=== PATIENT | male | born 1935 | race Caucasian/White ===

== ENCOUNTER 2020-11-02 10:19 | Outpatient (RCR) | payer MEDICARE, SELFPAY | END 2020-11-02 23:59 | LOC: IMMUN 10:19 | PROVIDERS: Visit Provider Family Medicine | DX: Z23 Encounter for immunization (principal) | CPT/HCPCS: 0011A; 0012A ==

== ENCOUNTER → 2021-02-20 | Outpatient (CLI) | payer MEDICARE, SELFPAY ==
--- NOTE | 2021-02-20 | BLA_PTH ---
PATIENT: SHAE ORTIZ LOC: [facility]#:[id number] AGE/SX: 85/M ROOM: RE02/20/[address]: Dr. 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 2/3 Lamina propria invasion ? not identified Lymphvascular invasion ? not identified Detrusor muscle presence ? detrusor muscle is not present in the specimen. See comment. SJ:karolina 02/21/2021 COMMENT Clinical correlation and appropriate follow up are necessary. Case has been reviewed in consultation with Dr. Oliver who concurs with the above diagnosis. IDC:AM MICROSCOPIC DESCRIPTION Slides are reviewed. GROSS DESCRIPTION Received in fixative is one container labeled with the patient's name and designated bladder biopsy. The specimen consists of one irregular fragment of light prieto soft tissue that measures 0.3 x 0.3 x 0.1 cm. The specimen is totally submitted in one cassette. / SARTHAK:karolina 02/20/21 TC:0 CPT: 23875
== END | disposition home or self-care (01) ==
LOC: LABSPEC 12:18
PROVIDERS: Referring Provider Urology; Visit Provider Urology
DX: C67.9 Malignant neoplasm of bladder, unspecified (principal)
CPT/HCPCS: 88305

== ENCOUNTER → 2021-05-29 11:30 | Outpatient (CLI) | payer MEDICARE, SELFPAY ==
[2021-05-29 12:09] LABS: Hematocrit 45.8 % (40-54); Hemoglobin 15.8 g/dL (13.0-16.5); Mean Corp Hgb Conc 34.5 g/dL (32-36); Mean Corpuscular Hgb 32.3 pg (27.0-32.0); Mean Corpuscular Volume 93.7 fL (80-94); Platelet Count 246 K/mm3 (150-450); RBC Distribution Width CV 12.5 % (11.6-14.6); Red Blood Count 4.89 M/mm3 (4.6-6.2); White Blood Count 5.5 K/mm3 (4.4-11.0)
[2021-05-29 12:30] LABS: Anion Gap 2 (5-15); BUN 11 mg/dL (7-18); BUN/Creat Ratio 9.2 RATIO (10-20); Calcium,Total 9.1 mg/dL (8.5-10.1); Chloride 106 mmol/L (98-107); Creatinine, Serum 1.19 mg/dL (0.70-1.30); EST Glomerular Filtration Rate 62 mL/min (>60); Est Glom Filt Rate - Afr Amer 75 mL/min (>60); Glucose 108 mg/dL (74-106); Potassium 4.5 mmol/L (3.5-5.1); Sodium Level 140 mmol/L (136-145)
== END ==
PROVIDERS: Visit Provider Urology
DX: Z01.812 Encounter for preprocedural laboratory examination (principal); I10 Essential (primary) hypertension
CPT/HCPCS: 36415; 80048; 85027

== ENCOUNTER → 2021-06-26 | Outpatient (CLI) | payer MEDICARE, SELFPAY ==
--- NOTE | 2021-06-23 08:00 | BLB_PTH ---
PATIENT: SHAE ORTIZ LOC: [facility]#:[id number] AGE/SX: 85/M ROOM: RE06/26/[address]: Dr. Thai Azevedo MD : 1935 BED: DIS: 06/26/2021 SPEC #: [id number] RECD: 06/26/21 15:10 STATUS: ANNAMARIE BRYSON #: [id number] BETTE: 06/23/21 08:[address]: Thai Azevedo DEPT: SURGICAL PATHOLOGY RECD BY: Christopher Florentino ENTERED: 06/27/21 08:48 SP TYPE: TURB OTHR DR: ML Tissues: Urinary bladder, NOS Procedures: Surgery Specimen Level V HEADER OPERATION: Transurethral resection of large bladder tumor PRE-OP DIAGNOSIS: Malignant neoplasm of overlapping sites of bladder TISSUE SUBMITTED: Bladder biopsies MICROSCOPIC DIAGNOSIS Urinary bladder, biopsy: Papillary urothelial carcinoma, grade 1-2. See comment. AM:karolina 06/28/2021 COMMENT There is no evidence of lamina propria invasion. Fragments of detrusor muscle are present and free of tumor. Clinical correlation is suggested. Case has been reviewed in consultation with Dr. Miller who concurs with the above diagnosis. IDC:SARTHAK MICROSCOPIC DESCRIPTION Slides are reviewed. GROSS DESCRIPTION Received in fixative is one container labeled with the patient's name and designated bladder biopsy. The specimen consists of multiple irregular fragments of light prieto soft tissue that in aggregate measure 0.5 x 0.3 x 0.1 cm. The specimen is totally submitted in one cassette. / SARTHAK:karolina 06/27/21 TC:0 CPT: [id number]
== END | disposition home or self-care (01) ==
LOC: LABSPEC 15:22
PROVIDERS: Referring Provider Urology; Visit Provider Urology
DX: C67.8 Malignant neoplasm of overlapping sites of bladder (principal)
CPT/HCPCS: 88307

== ENCOUNTER → 2021-08-10 16:57 | Outpatient (CLI) | payer MEDICARE, SELFPAY | PROVIDERS: Visit Provider Urology | DX: N39.0 Urinary tract infection, site not specified (principal) | CPT/HCPCS: 87086 ==

== ENCOUNTER 2021-11-20 16:41 | Outpatient (CLI) | payer MEDICARE, SELFPAY ==
--- NOTE | 2021-11-20 | CYSPIN_PTH ---
PATIENT: SHAE ORTIZ LOC: [facility] U#:[id number] AGE/SX: 86/M ROOM: RE11/20/[address]: Dr. Thai Azevedo MD : 1935 BED: DIS: 11/20/2021 SPEC #: [id number] RECD: 11/20/21 16:35 STATUS: ANNAMARIE MASSEY #: [id number] BETTE: 11/20/21 00:[address]: Thai Azevedo DEPT: CYTOLOGY RECD BY: Christopher Florentino Tissues: Urine Procedures: Pap Stain (control) Special Stain Group II Cytospin Fluid HEADER OPERATION: Not noted PRE-OP DIAGNOSIS: Malignant neoplasm of bladder TISSUE SUBMITTED: Urine for cytology DIAGNOSIS CYTOLOGY Urine for cytology (cytospin): Negative for malignant cells. AM:karolina 11/22/2021 CYTOLOGY STUDY Slides are reviewed. CYTOLOGY GROSS Received is 20 ml of gold cloudy fluid labeled with the patient's name and and designated per the requisition as urine. Submitted for cytology preparation. / karolina 11/21/2021 TC:5 CPT: [id number]
== END 2021-11-20 23:59 | disposition home or self-care (01) ==
LOC: LABSPEC 16:44
PROVIDERS: Referring Provider Urology; Visit Provider Urology
DX: C67.8 Malignant neoplasm of overlapping sites of bladder (principal)
CPT/HCPCS: 88108; 88313

== ENCOUNTER → 2023-11-04 | Outpatient (CLI) | payer MEDICARE, SELFPAY ==
--- NOTE | 2023-11-04 07:30 | BLB_PTH ---
PATHOLOGY RESULTS PATIENT: SHAE ORTIZ LOC: [facility] U#:[id number] AGE/SX: 88/M ROOM: RE11/04/[address]: Dr. Thai Azevedo MD : 1935 BED: DIS: 11/04/2023 SPEC #: [id number] RECD: 11/05/23 08:14 STATUS: ANNAMARIE MASSEY #: [id number] BETTE: 11/04/23 07:[address]: Thai Azevedo DEPT: SURGICAL PATHOLOGY RECD BY: Sivan Lock ENTERED: 11/05/23 08:14 SP TYPE: TURB OTHR DR: No Primary Care Phys WAS Tissues: Urinary bladder, NOS Procedures: Surgery Specimen Level V HEADER OPERATION: Bilateral transurethral resection of bladder tumor PRE-OP DIAGNOSIS: Neoplasm of bladder TISSUE SUBMITTED: Bladder tumor MICROSCOPIC DIAGNOSIS Bladder tumor, transurethral resection: Papillary urothelial carcinoma, noninvasive. See cancer summary in the comment section. SJ:rg 11/06/2023 COMMENT BLADDER CANCER (TUR) SUMMARY Procedure: Transurethral resection of bladder tumor (TURBT) Tumor site: Bilateral, otherwise not specified Histologic type: Papillary urothelial carcinoma, noninvasive Associated epithelial lesions: None identified Histologic grade: High grade (predominantly grade 2 with focal area of grade 3) Tumor configuration: Papillary Muscularis propria presence: No muscularis propria (detrusor muscle) is identified. Lymphvascular invasion: Not identified Tumor extension: Noninvasive papillary carcinoma. Additional pathologic findings: None. Clinical history: Please make reference to previous specimens ([id number]), bladder, biopsy with diagnosis of papillary urothelial carcinoma and ([id number]) urinary bladder, biopsy with diagnosis of papillary urothelial carcinoma. PATHOLOGIC STAGE: cross tie turner pNx Mx The above summary is in compliance with [employer] (CAP) Cancer Protocols Checklist and [place] [employer] on Cancer (AJCC), Staging Manual, 8th Ed. MICROSCOPIC DESCRIPTION Slides are reviewed. GROSS DESCRIPTION Received in fixative is one container labeled with the patient's name and designated bladder tumor. The specimen consists of multiple irregular fragments of prieto-brown soft tissue that in aggregate measure 1.5 x 1.0 x 0.1 cm. The specimen is totally submitted in one cassette. / SARTHAK:karolina 11/05/2023 TC:0 CPT: [id number]
--- OUTSIDE RECORDS SUMMARY | 2023-11-04 23:46 | XMS RPT_ITS | CCD ---
Author Name Unknown Address [address] [facility] [address] [place] [address] Organization [facility] Care Team Providers Care Production Support Manager Name Role Phone LORENZO MONTEMAYOR MD Primary Care Physician Unavailable Primary Care Provider UnavailMITESH Andrew Attending U LORENZO Levy MD Primary Care Unavailable MITESH GRAVES Attending LORENZO Camejo MD Primary Care Unavailable DR IRINA COLE MD Attending Unavailable LORENZO MONTEMAYOR MD Primary Care Unavailable KELSEY GARCIA, DR AREVALO Attending Unavailable LORENZO MONTEMAYOR MD Primary Care Unavailable PATRICIA GARCIA, DR HALL Attending Unavailable LORENZO MONTEMAYOR MD Primary Care Unavailable PATRICIA GARCIA, DR HALL Attending Unavailable LORENZO MONTEMAYOR MD Primary Care Unavailable LORENZO MONTEMAYOR MD Primary Care Unavailable SORAIDA CHEATHAM MD Attending Unavailable KELSEY GARCIA, DR AREVALO Attending Unavailable LORENZO MONTEMAYOR MD Primary Care Unavailable PATRICIA GARCIA, DR HALL Attending Unavailable LORENZO MONTEMAYOR MD Primary Care Unavailable LORENZO MONTEMAYOR MD Attending Unavailable LORENZO MONTEMAYOR MD Primary Care Unavailable OTONIEL GARCIA, DR BENITEZ SOTO Attending LORENZO Day MD Primary Care Unavailable Allergies Allergy Classification Reported Allergen(s) Allergy Type Date of Onset Reaction(s) Facility (7 sources) Antihistamine; Translations: [antihistamines ] Propensity to adverse reactions to drug Tachycardia [facility] Work Phone: (7 sources) hydroCHLOROthia zide; Translations: [hydrochlorothi azide] Drug Allergy hyponatremia [facility] Work Phone: (7 sources) Lisinopril; Translations: [lisinopril] Drug Allergy Lip swelling [facility] Work Phone: (7 sources) tetanus toxoid vaccine, inactivated; Translations: [tetanus toxoid] Drug Allergy Focal inflammation (morphologic abnormality) [facility] Work Phone: Medications Current Medications Medication Drug Class(es) Dates Sig (Normalized) Sig (Original) amLODIPine 5 mg oral tablet (7 sources) Dihydropyridine Calcium Channel Tasia Start: 09-17-2023 amLODIPine 5 mg oral tablet Dose : 5 mg = 1 tab(s), Oral, qDay, # 30 tab(s), 3 Refill(s), other reason (Rx), Palpitations Hyponatremia Start Date: 09/17/23 Status: Ordered Problems Active Problems Problem Classification Problem Date Documented Da te Episodic/Chronic Anxiety disorders (7 sources) Anxiety 03-18-2014 Chronic Past or Other Problems Problem Classification Problem Date Documented Da te Episodic/Chronic Cancer of bronchus; lung (8 sources) History of malignant neoplasm of lung; Translations: [Personal history of other malignant neoplasm of bronchus and lung] Onset: 04-17-2023 03-15-2022 Episodic Results Test Name Value Interpretation Reference Range Facil ity Vital Signs Date Time Vital Sign Value Performing Clinician Elizabeth anderseny 03-02-2023 20:27-0400 Diastolic Blood Pressure Non-Invasive 95 1 SORAIDA CHEATHAM MD [facility] 03-02-2023 20:27-0400 Heart rate 99 /min SORAIDA CHEATHAM MD [facility] 03-02-2023 20:27-0400 Respiratory rate 25 /min SORAIDA CHEATHAM MD [facility] 03-02-2023 20:27-0400 Systolic Blood Pressure Non-Invasive 169 1 SORAIDA CHEATHAM MD [facility] 03-02-2023 17:14-0400 Diastolic Blood Pressure Non-Invasive 93 1 SORAIDA CHEATHAM MD [facility] 03-02-2023 17:14-0400 Heart rate 90 /min SORAIDA CHEATHAM MD [facility] 03-02-2023 17:14-0400 Respiratory rate 19 /min SORAIDA CHEATHAM MD [facility] 03-02-2023 17:14-0400 Systolic Blood Pressure Non-Invasive 190 1 SORAIDA CHEATHAM MD [facility] 03-02-2023 16:01-0400 Diastolic Blood Pressure Non-Invasive 85 1 SORAIDA CHEATHAM MD [facility] 03-02-2023 16:01-0400 Heart rate 90 /min SORAIDA CHEATHAM MD [facility] 03-02-2023 16:01-0400 Respiratory rate 18 /min SORAIDA CHEATHAM MD [facility] 03-02-2023 16:01-0400 Systolic Blood Pressure Non-Invasive 168 1 SORAIDA CHEATHAM MD [facility] 03-02-2023 14:02-0400 Body temperature 97.88 [degF] SORAIDA CHEATHAM MD [facility] 03-02-2023 14:02-0400 Body weight 77.5 kg SORAIDA CHEATHAM MD [facility] Encounters Encounter Date Encounter Type Care Provider Facility Start: 10-28-2023 End: 10-29-[address] BENITEZ FREDERICK MD Facility:B Start: 10-28-2023 End: 10-28-[address] BENITEZ FREDERICK MD [facility] Start: 10-28-2023 End: 10-28-[address] BENITEZ FREDERICK MD [facility] Start: 07-23-2023 End: 07-24-2023 ambulatory LORENZO MONTEMAYOR MD Facility:B Start: 06-27-[address] ISBAEL GOMEZ MD Faci lity:A Start: 06-18-2023 End: 06-19-[address] ISABEL GOMEZ MD Facility:B Start: 06-04-2023 End: 06-05-[address] ISABEL GOMEZ MD Facility:B Start: 04-25-2023 End: 04-26-[address] IRINA COLE MD Facility:A Start: 04-19-2023 End: 04-20-[address] IRINA COLE MD Facility:B Start: 04-17-2023 End: 04-22-[address] IRINA COLE MD Facility:B Start: 04-17-2023 End: 04-21-[address] IRINA COLE MD [facility] Start: 03-28-2023 End: 03-29-2023 ambulatory MITESH ANDRAEGAYLASOBEN [employer] PROFESSOR Facility:B Start: 03-28-2023 End: 03-28-2023 Patient encounter procedure MITESH ZEPEDASOTREVORSTACY [employer] PROFESSOR [facility] Start: 03-22-2023 End: 03-23-2023 ambulatory MITESH DUANESOLDSTACY [employer]ATION PROFESSOR Facility:B Start: 03-22-2023 End: 03-22-2023 Patient encounter procedure MITESH ALETALDNER [employer] PROFESSOR [facility] Start: 03-02-2023 End: 03-02-2023 Emergency department patient visit LORENZO MONTEMAYOR MD Facility:A Start: 03-02-2023 End: 03-02-2023 Emergency department patient visit SORAIDA CHEATHAM MD [facility] Start: 03-21-2022 End: 03-21-[address] IRINA COLE MD [facility] Start: 01-31-2022 End: 05-29-2022 Outreach Lab LORENZO MONTEMAYOR MD [facility] Start: 06-18-2021 Patient encounter procedure Albert Morin MD Work Phone: [facility] Start: 06-18-2021 Progress Note Albert reese MD Work Phone: [facility] Start: 12-28-2020 Patient encounter procedure Promise Benoit MD Work Phone: [facility] Start: 12-28-2020 Progress Note Proimse Benoit MD Work Phone: [facility] Procedures Date Procedure Procedure Detail Performing Clinician Start: 06-13-2017 Cystoscopy and transurethral resection of bladder tumor LORENZO MONTEMAYOR MD Immunizations Immunization Date Immunization Notes Care Provider Fa [facility] 09-06-2021 COVID-19, mRNA, LNP- S, PF, 100 mcg or 50 mcg dose; Translations: [Moderna COVID-19 Vaccine] LORENZO MONTEMAYOR MD [facility] 11-30-2020 SARS-CoV-2 (COVID-19 ) mRNA-1273 vaccine LORENZO MONTEMAYOR MD [facility] 11-02-2020 SARS-CoV-2 (COVID-19 ) mRNA-1273 vaccine LORENZO MONTEMAYOR MD [facility] Payers Date Payer Category Payer Private Health Insurance [id number] 1935 Unknown [id number] 2.16.8 [id number] 1935 Unknown [id number] 2.16.8 [id number] 1935 Unknown [id number] 2.16.8 [id number] 1937 Unknown [id number] 2.16.8 [id number] 1937 Unknown [id number] 2.16.8 [id number] 1937 Unknown [id number] 2.16.8 [id number] 1937 Unknown [id number] 2.16.8 [id number] 1935 Unknown [id number] 2.16.8 [id number] 1935 Unknown [id number] 2.16.8 [id number] 1935 Unknown [id number] 2.16.8 [id number] 1935 Unknown [id number] 2.16.8 [id number] Social History Date Type Detail Facility Start: 02-09-2020 Tobacco smoking status Ex-smoker (fi nding) [facility] Functional Status Date Assessment Result Facility 03-02-2023 Functional Status Independent [facility] 03-02-2023 Functional Status Repositions self [facility] Mental Status Date Assessment Result Facility 03-02-2023 Mental Status Orientation Oriented x 4 [facility] Clinical Notes 12-28-2020 to 03-28-2023 Note Date & Type Note Facility [facility] 06-24-2023 Hospital Discharge instructions Patient Education 03/02/2023 20:00:15 About Arrhythmias About Arrhythmias Electrical impulses cause the normal heart to beat 60 to 100 times a minute while at rest. These impulses come from a natural pacemaker deep inside the heart muscle. Each impulse causes the heart muscle to contract. This causes the blood to flow through the heart and out to the tissues and organs of your body. An arrhythmia is a change from the normal speed or pattern of these electrical impulses. This can cause the heart to beat too fast (tachycardia); or too slow (bradycardia); or in an unsteady pattern (irregular rhythm). Symptoms of arrhythmias Different people experience arrhythmias differently. Sometimes they may not have symptoms, but justnotice a change in their pulse. Symptoms can include: Fluttering feeling in the chest Shortness of breath Chest pain or pressure Neck fullness Lightheadedness or dizziness Fainting or almost fainting Palpitations (the sense that your heart is fluttering or beating fast or hard or irregularly) Tiredness, fatigue, or weakness Cardiac arrest Causes of arrhythmias Arrhythmias are most often due to heart disease such as: Coronary artery disease Heart valve disease Enlarged heart High blood pressure Heart failure Other causes of arrhythmia include: Certain medicines (such as asthma inhalers and decongestants) Some herbal supplements Cardiac stimulant drugs (such as cocaine, amphetamine, diet pills, certain decongestant cold medicines, caffeine, and nicotine) Excessive alcohol use Anxiety and panic disorder Thyroid disease Anemia Diabetes Sleep apnea Obesity Congenital heart disease Cardiac genetic diseases Arrhythmias can often be prevented. The cause and type of arrhythmia determines the best treatment.Sometimes your doctor may want to monitor your heart rate over a 24-hour period or longer. This canhelp identify the cause of your arrhythmia and find the best treatment. This can be done with a Holter monitor, a portable EKG recording device attached by wires to your chest. Or you may get an event monitor, which you can place over the skin in front of your heart to record heart rhythms. You cancarry this with you as you go about your routine activities during the monitoring period. Implantable loop recorders may also be used to monitor the heart rhythm for up to 2 years. This miniature device is placed underneath the skin overlying the heart. Home care The following guidelines will help you care for yourself at home: Avoid cardiac stimulants (such as cocaine, amphetamine, diet pills, certain decongestant cold medicines, caffeine, and nicotine). If you smoke, stop smoking. Contact your doctor or a local stop-smoking program for help. Tell your doctor about any prescription, lclj-cak-smlqfoj, or herbal medicines you take. These may be affecting your heart rhythm. Follow-up care Follow up with your healthcare provider, or as advised. If a Holter monitor has been recommended, contact the clipper machine operator you have been referred to as soon as you can pick up driver the device. Other outpatient tests may also be arranged for you at that time. Call 911 This is the fastest and safest way to get to the emergency department. The paramedics can also start treatment on the way to the hospital, if needed. Don't wait until your symptoms are severe to call 911. Other reasons to call 911 besides chest paininclude: Chest, shoulder, arm, neck, or back pain Shortness of breath Feeling lightheaded, faint, or dizzy Unexplained fainting Rapid heart beat Slower than usual heart rate compared to your normal Very irregular heartbeat Chest pain (angina) with weakness, dizziness, heavy sweating, nausea, or vomiting Extreme drowsiness, or confusion Weakness of an arm or leg or one side of the face Difficulty with speech or vision When to seek medical advice Remember, things are not always like they are on TV. Sometimes it is not so obvious. You may only feel weak or just not right. If it is not clear or if you have any doubt, call for advice. Seek help for chest pain, or it feels different from usual, even if your symptoms are mild. Don't drive yourself. Have someone else drive. If no one can drive you, call 911. If your doctor has given you medicines to take when you have symptoms, take them, but don't delay getting help while trying to find them. [phone] [employer]. [address] [place] [address]. All rights reserved. This information is not intended as a substitute for professional medical care. Always follow yourhealthcare professional's instructions. Follow Up Care 03/02/2023 14:02:12 With:ISABEL GOMEZ Address: [address] [facility] [address] [facility] [place] [address] [phone] Business (1) When:2-4 days With:LORENZO MONTEMAYOR Address: [address] [facility] [place] [address]- Business (1) When:2-4 days [facility] 06-24-2023 Emergency department Discharge summary Discharge Instructions Thank you for allowing [facility] to assist you with your healthcare needs. The following is importantdischarge information regarding your hospital visit. Diagnosis from Today's Visit Palpitations- intermittent PVC - premature ventricular complex What to Do Next Instructions from Your Care Team Discharge Event Monitor Instructions - Ordered -- 03/02/23 20:00:00 EDT, You have been ordered mobile outpatient telemetry. If not given a device in the ED, expect to receive one in the mail. If you have not received a device within 7 days after discharge, please call [facility] at [phone]. Post Acute Orders No qualifying data available. You Need to Schedule the Following Appointments Follow Up with ISABEL GOMEZ When Within 2-4 days Where: [address] [facility] [address] [facility] [place] [address] [phone] Business (1) Follow Up with LORENZO MONTEMAYOR When Within 2-4 days Where: [address] [facility] [place] [address]- Business (1) Allergies Tetanus Toxoid Adsorbed (Localized inflammation) antihistamines (Tachycardia) hydroCHLOROthiazide (hyponatremia) lisinopril (Lip swelling) Medications Please ask your primary doctor or pharmacist before taking any other medication not listed, including over the counter drugs, herbal medications, vitamins and or supplements as they may interact withyour home medications. What How Much When Why Instructions Last Dose New metoprolol (Metoprolol Succinate ER 25 mg oral TABLET extended release) 1 tab(s) by mouth Once a day Printed Prescription Unchanged amLODIPine (amLODIPine 5 mg oral tablet) 1 tab(s) by mouth Once a day Palpitations Hyponatremia Unchanged cholecalciferol (Vitamin D3) 1,000 unit(s) by mouth Once a day Unchanged herbal/ nutritional product (Red Yeast Rice 600 mg oral capsule) 2 cap by mouth Daily at bedtime Unchanged multivitamin with minerals (Vitamin D with Minerals oral tablet) 2 tab(s) by mouth Once a day (in the morning) Unchanged multivitamin with minerals (Vitamin D with Minerals oral tablet) 1 tab(s) by mouth Daily at bedtime Unchanged ubiquinone (Co Q-10 100 mg oral capsule) 1 cap by mouth Once a day Please take this list to your next doctor s visit. Bring all medications you take, including over the counter medications, herbals and other supplements with you to your doctor s visit. Patients and families are reminded to discard old lists and to update any records with all medication providers or retail pharmacies. Education Materials About Arrhythmias Electrical impulses cause the normal heart to beat 60 to 100 times a minute while at rest. These impulses come from a natural pacemaker deep inside the heart muscle. Each impulse causes the heart muscle to contract. This causes the blood to flow through the heart and out to the tissues and organs of your body. An arrhythmia is a change from the normal speed or pattern of these electrical impulses. This can cause the heart to beat too fast (tachycardia); or too slow (bradycardia); or in an unsteady pattern (irregular rhythm). Symptoms of arrhythmias Different people experience arrhythmias differently. Sometimes they may not have symptoms, but justnotice a change in their pulse. Symptoms can include: Fluttering feeling in the chest Shortness of breath Chest pain or pressure Neck fullness Lightheadedness or dizziness Fainting or almost fainting Palpitations (the sense that your heart is fluttering or beating fast or hard or irregularly) Tiredness, fatigue, or weakness Cardiac arrest Causes of arrhythmias Arrhythmias are most often due to heart disease such as: Coronary artery disease Heart valve disease Enlarged heart High blood pressure Heart failure Other causes of arrhythmia include: Certain medicines (such as asthma inhalers and decongestants) Some herbal supplements Cardiac stimulant drugs (such as cocaine, amphetamine, diet pills, certain decongestant cold medicines, caffeine, and nicotine) Excessive alcohol use Anxiety and panic disorder Thyroid disease Anemia Diabetes Sleep apnea Obesity Congenital heart disease Cardiac genetic diseases Arrhythmias can often be prevented. The cause and type of arrhythmia determines the best treatment.Sometimes your doctor may want to monitor your heart rate over a 24-hour period or longer. This canhelp identify the cause of your arrhythmia and find the best treatment. This can be done with a Holter monitor, a portable EKG recording device attached by wires to your chest. Or you may get an event monitor, which you can place over the skin in front of your heart to record heart rhythms. You cancarry this with you as you go about your routine activities during the monitoring period. Implantable loop recorders may also be used to monitor the heart rhythm for up to 2 years. This miniature device is placed underneath the skin overlying the heart. Home care The following guidelines will help you care for yourself at home: Avoid cardiac stimulants (such as cocaine, amphetamine, diet pills, certain decongestant cold medicines, caffeine, and nicotine). If you smoke, stop smoking. Contact your doctor or a local stop-smoking program for help. Tell your doctor about any prescription, vnqx-ifp-lesfkyj, or herbal medicines you take. These may be affecting your heart rhythm. Follow-up care Follow up with your healthcare provider, or as advised. If a Holter monitor has been recommended, contact the clipper machine operator you have been referred to as soon as you can pick up driver the device. Other outpatient tests may also be arranged for you at that time. Call 911 This is the fastest and safest way to get to the emergency department. The paramedics can also start treatment on the way to the hospital, if needed. Don't wait until your symptoms are severe to call 911. Other reasons to call 911 besides chest paininclude: Chest, shoulder, arm, neck, or back pain Shortness of breath Feeling lightheaded, faint, or dizzy Unexplained fainting Rapid heart beat Slower than usual heart rate compared to your normal Very irregular heartbeat Chest pain (angina) with weakness, dizziness, heavy sweating, nausea, or vomiting Extreme drowsiness, or confusion Weakness of an arm or leg or one side of the face Difficulty with speech or vision When to seek medical advice Remember, things are not always like they are on TV. Sometimes it is not so obvious. You may only feel weak or just not right. If it is not clear or if you have any doubt, call for advice. Seek help for chest pain, or it feels different from usual, even if your symptoms are mild. Don't drive yourself. Have someone else drive. If no one can drive you, call 911. If your doctor has given you medicines to take when you have symptoms, take them, but don't delay getting help while trying to find them. [phone] [employer]. [address] [place] [address], [place] [address]. All rights reserved. This information is not intended as a substitute for professional medical care. Always follow yourhealthcare professional's instructions. Additional Information VACCINATE! IT SAVES LIVES! Members of the community who have not yet received the COVID-19 vaccine and would like to receive it can visit one of [facility] vaccine clinics. There are many vaccine clinic locations within the [facility]. For locations and available times, please visit www.gettheshot.coronavirus.[place].gov/. It is important to note that some COVID mobile vaccine clinics are held outdoors and may be canceled in rainy or stormy conditions. To learn more about pediatric vaccinations (ages 5-11), we invite you to visit the [facility] webpage. [email or web address]/[email or web address]-Mnsreuailud-Yoclvqcppf-Ngyqy-Agv stions.htmlTo learn more about the COVID-19 vaccine, we invite you to visit the CDC website for a list of frequently asked questions. https://www.cdc.gov/coronavirus/2019-ncov/vaccines/faq.html [facility] Patient Portal Access Instructions: Stay connected with your healthcare team and access your personal medical information anytime with the [facility] Patient Portal. If you would like a full copy of your medical records please contact the [facility] Medical Records Department Saturday through Saturday between 8a.m. and 4:30p.m. Please follow the directions below to access the portal: 1.Access the email account you provided upon registration to the hospital.2.Look for an invitation email from [facility].3.Open the email and access the invitation link: Accept Invitation to [facility]4.Fill in the required mosley to create your account. Sign into [email or web address] with your username and password that you created in the above steps to stay up to date. You can then view a summary of results, a summary of your visits, and the ability to download your summaries to your computer or send the information securely to a physician. Remember that your healthcare information is confidential, so carefully consider who you will allow to register on the [facility] Patient Portal for access to your information. You can also access the [facility] Patient Portal on the [employer]. Simply click on Health Records under [employer] and then click on the [employer] logo. HOW TO SAFELY DISPOSE OF PRESCRIPTION MEDICATIONS Please use one of the following methods to safely dispose of your unused medications. 1.Use a drug disposal kit: the drug disposal pouch allows you to safely discard your old and unuseddrugs. Ask your nurse to give you one when you are discharged.2.Visit a local take-back location: Many local pharmacies and police departments have programs that collect old and unwanted prescriptiondrugs. Call your local pharmacy or go to http://[employer]age[employer]/1Y9Pa2v to find one close to you.3.Make use of household items: Use cat litter or old coffee grounds to dispose medications if other options arenot available. Mix your drugs with these household products, seal them in an airtight container andthrow it into the garbage. Call [facility]: [phone] to be sure your drugs can be disposed of in this way. Some medicines may require a different approach.4.Never flush your medications down the toilet. IF YOU HAVE BEEN PRESCRIBED AN OPIOIDS FOR PAIN If you have been prescribed an opioid (such as hydrocodone, oxycodone or morphine), it is critical to understand the possible side effects and risks of opioid pain medications. Even when taken as directed, opioids can have several side effects including: Tolerance, meaning you might need to take more of a medication for the same pain relief. Nausea, vomiting and/or constipation. Sleepiness, dizziness, dry mouth, confusion, depression or itching. Physical dependence, meaning you have withdrawal symptoms when a medication is stopped ? this can develop within a few days. KNOW YOUR RESPONSIBILITIES It is important to know exactly how much and how often to take the opioid pain medications you are prescribed. Never take opioids in higher amounts or more often than prescribed. Do not combine opioids with alcohol or other drugs that cause drowsiness, such as benzodiazepines, also known as benzos,including diazepam and alprazolam, muscle relaxants or sleep aids. Never sell or share prescriptionopioids. This is illegal. Store opioids in a secure place and out of reach of others (including children, family, friends and visitors). The last page(s) of this document has been signed and retained as a CHART COPY Signatures Patient Education Materials About Arrhythmias Medication Leaflets My discharge plan and instructions have been reviewed and explained to me and IDIANA ROBERT R understand my current condition and have read and understand these discharge instructions. I have received a written copy of the plan/instructions. If I have questions, I am aware that I should contactmy doctor. Patient/Maintenance And Engineering Manager Signature: Date/Time: Relationship to Patient: Witness Name/Signature: [id number] Note ORIGINAL EXAMINATION: ONE XRAY VIEW OF THE CHEST03/02/2023 2:37 pm COMPARISON: CTA chest 01/10/2021, chest radiograph 01/10/2021 HISTORY: ORDERING SYSTEM PROVIDED HISTORY: Reason for Exam: palpitations FINDINGS: The cardiomediastinal silhouette is stable. Atherosclerotic aorta. No focal consolidation or pulmonary edema. Biapical scarring. No pneumothorax or pleural effusion. No acute osseous abnormalities. Degenerative changes of the spine. IMPRESSION: No acute radiographic findings. I have reviewed this report and agree with the resident findings and interpretation. Interpreted by: Morris Vallejo MD Preliminary Report By: Gilberto Fitch Electronically signed By Morris Vallejo MD Dictated Date: 03/02/2023 2:39:07 PM Prelim Date: 03/02/2023 2:41:15 PM Sign Date: 03/02/2023 2:51:35 PM Ordering Provider: CAMILO COBB [id number] Note ORIGINAL EXAMINATION: ONE XRAY VIEW OF THE CHEST03/02/2023 2:37 pm COMPARISON: CTA chest 01/10/2021, chest radiograph 01/10/2021 HISTORY: ORDERING SYSTEM PROVIDED HISTORY: Reason for Exam: palpitations FINDINGS: The cardiomediastinal silhouette is stable. Atherosclerotic aorta. No focal consolidation or pulmonary edema. Biapical scarring. No pneumothorax or pleural effusion. No acute osseous abnormalities. Degenerative changes of the spine. IMPRESSION: No acute radiographic findings. I have reviewed this report and agree with the resident findings and interpretation. Interpreted by: Morris Vallejo MD Preliminary Report By: Gilberto Fitch Electronically signed By Morris Vallejo MD Dictated Date: 03/02/2023 2:39:07 PM Prelim Date: 03/02/2023 2:41:15 PM Sign Date: 03/02/2023 2:51:35 PM Ordering Provider: [facility]10-10-2021 History of Present illness Narrative* Albert Morin MD - 06/18/2021 3:28 PM EDT DATE OF SERVICE: 06/15/2021 HISTORY OF PRESENT ILLNESS: This is an 85-year-old male with chief complaint of possible sciatica nerve pain. He says his left leg hurts, and he had a similar thing in December. He says there is a small bump, swelling in his left leg inside. He had an x-ray and CT scan at [facility] in December that revealed he had spinal stenosis and he did not have a fracture of his back. This happened after mowing grass in December and today he is coming in because after he started mowing grass on June 01 this same thing happened. He has uncontrolled high blood pressure. They are trying to stabilize that. He has a history of lung cancer, bladder cancer, history of high blood pressure and pneumonia. SOCIAL HISTORY: No alcohol, no smoking. FAMILY HISTORY: High blood pressure. REVIEW OF SYSTEMS: Denies any fever, chills. No chest pain or shortness of breath. No abdominal pain. Just the left leg pain. He can feel his legs. They are not numb. It just shoots down his left leg, starts from his left buttock. PHYSICAL EXAMINATION: Blood pressure is 195/101, pulse 100, respiratory rate 16, temperature 97.3, oxygen saturation 98% on room air. Lungs are clear. Cardiovascular: Just slight increase. Heart rate 100. No murmurs. Abdomen: Soft. There is no pulsatile mass. No CVA tenderness. No vertebral tenderness. Left buttock pain on palpation. Movements of the legs did not reproduce this pain, but he does say his pain automatically starts occurring in the left buttock shooting down his leg. Negative straight leg raise test on the left and right. Good distal pulses. Good circulation. The left inner calf has a 3-cm medial area of the swelling, which is blanchable, nontender. I do suspect this could be a varicosity. Negative calf tenderness. IMPRESSION: Left sciatica. I did offer him x-rays. At this point, he said he already had recent X rays. He is essentially looking for pain medicines as his doctor would only give him prednisone about a week ago, but he does not want to take prednisone because of the surgery that he is apparently having soon. OARRS report is negative. [place] for pain 5/325 one p.o. q.4 hours, number 15. If worsening, he needs to be reseen or see his doctor for further imaging and work up of this pain. He agrees with plan. Rah Morin MD /[id number] [facility] File#: [id number] END OF DOCUMENT / CHANGE LOG FOLLOWS Last Edited By Elec. Signed By Albert Morin MD #[id number] Albert Morin MD #IBRKH on 06/19/2021 07:53 ET on 06/19/2021 07:53 ET Revision Number - 2 ^^^ Verified/Reviewed by 06/19/21 0753 [facility] PATIENT [facility]: [facility] MEDICAL REC #: [id number] [place] [address] [place] [facility] RE[facility] STATCARE PHYSICIAN documented in this encounterSycam[facility] Center04-[facility] History of Present illness Narrative* Promise Benoit MD - 12/28/2020 9:00 AM EDT DATE OF SERVICE: 12/26/2020 REASON FOR VISIT: Left ankle pain. HISTORY OF PRESENT ILLNESS: This is a 89-year-old male who initially had left leg pain and left thigh pain which started after he cut the grass. His pain started 3 days ago, although the leg pain has now resolved but he noticed his left ankle is swollen although does not have any pain in the ankle. Did not have any injury. He also has some left thigh pain as well. The left thigh pain is slightly persistent. He can walk but it he has discomfort in his left thigh muscle. No tingling, numbness, or weakness. Denies any back pain. He did not fall down and did not do any heavy duty although the pain started after he cut the grass. No other problems at this visit. Review of other systems normal. ALLERGIES: NKA. MEDICATIONS: List was reviewed. PHYSICAL EXAMINATION: He is awake, alert, not in distress. No dyspnea. Temperature 97.8, blood pressure 160/88, pulse 105, respirations 16, pulse oximetry 98% on room air. Pain score 0/10. Examination of left lower extremity revealed no deformity. He has a lot of prominent veins in the left leg. There is no calf swelling. No calf tenderness. His left ankle has soft tissue swelling but there is no tenderness. No pitting edema. Homans sign is negative. Motion of the ankle is normal. Weightbearing is full. Touch sensation is maintained. Motor function 5/5. Examination of the left thigh revealed mild muscular soft tissue soft tissue tenderness on the lateral aspect of the left distal thigh although it is not very significant. Weightbearing is full with some discomfort. Neurovascular status was normal. The rest of exam was normal. ASSESSMENT: Muscular strain of the left leg. PLAN: Clinical findings were discussed with the patient in detail. I explained to him that it is most likely strain of the muscle from the grass cutting activities he did. I instructed him to rest, elevate, and use a heating pad. Take some Tylenol for pain relief. Not to do any heavy duty. No prolonged walking. I do not see any indication for x-rays right now. I also explained to him that he has a lot of prominent veins. This can contribute to the discomfort in the legs as well. Ankle swelling appears to be from soft tissue. I did not see any abnormal finding of the ankle joint on my exam today. Patient understands and agreed. He will follow with his doctor for further evaluation and care. Promise Benoit MD /[id number] [facility] [employer] File#: [id number] END OF DOCUMENT / CHANGE LOG FOLLOWS Last Edited By Elec. Signed By Promise Benoit MD #[id number] Promise Benoit MD #[id number] on 12/29/2020 12:20 ET on 12/29/2020 12:20 ET Revision Number - 2 ^^^ Verified/Reviewed by 12/29/20 1221 [facility] PATIENT NAME: BHAVIN ORTIZ [address] [facility] [address] MEDICAL REC #: [id number] [place] [address] [facility] REPORT STATCARE PHYSICIAN documented in this encounterSycamore Medical CenterEvaluation + Plan note Future Appointments Appointment Date:02/08/2022 09:30:00 AM Scheduled Provider:LORENZO MONTEMAYOR MD Location[facility] Appointment Type:PC OV Appointment Date:03/28/2022 02:15:00 PM Scheduled Provider:IRINA COLE MD Location:[facility] Appointment Type:[facility]M ONC OV Follow Up Future Scheduled Tests Radiology* XR Knee 1 or 2 Views Left (PEDS Only) 01/23/22 * XR Knee 1 or 2 Views Right (PEDS Only) 01/23/22 [facility] evaluation + Plan note Future Appointments Appointment Date:03/28/2022 02:15:00 PM Scheduled Provider:IRINA COLE MD Location:[facility] Appointment Type:HEM ONC OV Follow Up Future Scheduled Tests Radiology* XR Knee 3 Views Left 02/08/22 * XR Knee 3 Views Right 02/08/22 * XR Knee 1 or 2 Views Left (PEDS Only) 01/23/22 * XR Knee 1 or 2 Views Right (PEDS Only) 01/23/22 [facility] evaluation + Plan note Future Appointments Appointment Date:03/06/2023 11:00:00 AM Scheduled Provider:LORENZO MONTEMAYOR MD Location:[facility] Appointment Type:PC Wellness Medicare Appointment Date:04/25/2023 11:00:00 AM Scheduled Provider:IRINA COLE MD Location:[facility] Appointment Type:HEM ONC OV Follow Up Future Scheduled Tests Laboratory* Lactate Dehydrogenase 04/25/23 * Complete Blood Count 04/25/23 * Complete Metabolic Panel 04/25/23 [facility] Evaluation + Plan note Future Appointments Appointment Date:03/28/2023 10:00:00 AM Scheduled Provider: Location:RAD Appointment Type:CV Procedure - AOH Echo Appointment Date:04/25/2023 11:00:00 AM Scheduled Provider:IRINA COLE MD Location:[facility] Appointment Type:HEM ONC OV Follow Up Future Scheduled Tests Laboratory* Lactate Dehydrogenase 04/25/23 * Complete Blood Count 04/25/23 * Complete Metabolic Panel 04/25/23 [facility] evaluation + Plan note Future Appointments Appointment Date:04/25/2023 11:00:00 AM Scheduled Provider:IRINA COLE MD Location:[facility]C Appointment Type:HEM ONC OV Follow Up Appointment Date:05/03/2023 01:15:00 PM Scheduled Provider: Location:[facility] Appointment Type:CV OV Future Scheduled Tests Laboratory* Lactate Dehydrogenase 04/25/23 * Complete Blood Count 04/25/23 * Complete Metabolic Panel 04/25/23 [facility] Evaluation + Plan note Future Appointments Appointment Date:04/25/2023 11:00:00 AM Scheduled Provider:IRINA COLE MD Location:[facility] Appointment Type:HEM ONC OV Follow Up Appointment Date:05/03/2023 01:30:00 PM Scheduled Provider: Location:[facility] Appointment Type:CV OV [facility] Evaluation + Plan note Future Appointments Appointment Date:04/30/2024 11:00:00 AM Scheduled Provider:IRINA COLE MD Location:[facility] ONC Appointment Type:HEM ONC OV Follow Up Future Scheduled Tests Laboratory* Basic Metabolic Panel 06/21/23 * Lactate Dehydrogenase 04/25/24 * Thyroid Stimulating Hormone 01/16/24 * Complete Blood Count 06/21/23 * Complete Blood Count 04/25/24 * Lipid Profile 01/16/24 * Prothrombin Time - Panel 06/21/23 * Complete Metabolic Panel 01/16/24 * Complete Metabolic Panel 04/25/24 [facility] course Narrative No data available for this section [facility] Discharge instructions No data available for this section [facility] Progress note No data available for this section [facility] Summary Purpose Family History No Family History Records Found No data available for this section No data available for this section No data available for this section No Family History Records Found Advance Directives No Advanced Directives Records FoundNo Advanced Directives Records Found Additional Source Comments (unrecognized sect ion and content) No Status Records FoundNo Status Records Found INFORMATION SOURCE (unrecogn ized section and content) DATE CREATED AUTHOR AUTHOR'S ORGANIZ ATION 10/29/[address] [place] [address] ([place]) Care Team (unrecognized sect ion and content) Personnel Name: LORENZO MONTEMAYOR MD Address: [address] [facility] [place] [address]- Care Team Personnel Name: LORENZO MONTEMAYOR MD Position: P4 Physician - Primary Care Member Role: Primary Care Physician Address: Address: [address] [place] [address]- Name: KIERA DWYER DO Position: Resident Member Role: Resident Address: Address: [address] [place] [address] [place] [address]- Name: SORAIDA CHEATHAM MD Position: ED Physician Member Role: Attending Physician Address: Address: [address] [place] [id number]- Name: CAMILO COBB PA-C Position: ED Advanced [employer] Comber Member Role: Physician Marketing Operations Assistant w/Rx Address: Address: [address] [place] [address]- Name: DICK Henley RN Position: ED RN Member Role: ED RN Care Team Related Persons Name: ZAINAB ORTIZ Address: Home [address] [place], [place] [id number] [place] Care Team Personnel Name: LORENZO MONTEMAYOR MD Position: P4 Physician - Primary Care Member Role: Primary Care Physician Address: Address: [address] [place] [address]- Care Team Related Persons Name: ZAINAB ORTIZ Address: Home [address] [place], [place] [phone] [place] Care Team Personnel Name: LORENZO MONTEMAYOR MD Position: P4 Physician - Primary Care Member Role: Primary Care Physician Address: Address: [address] [place] [address]- Care Team Related Persons Name: ZAINAB ORTIZ Address: Home [address] [place], [place] [id number] [place] Care Team Personnel Name: LORENZO MONTEMAYOR MD Position: P4 Physician - Primary Care Member Role: Primary Care Physician Address: Address: [address] [place] [address]- Care Team Related Persons Name: ZAINAB ORTIZ Address: Home [address] [place], [place] [id number] Care Team Personnel Name: LORENZO MONTEMAYOR MD Position: P4 Physician - Primary Care Member Role: Primary Care Physician Address: Address: [address] [place] [address]- [place] Care Team Related Persons Name: ZAINAB ORTIZ Address: [place] [address] [place], [place] [id number] Source Comments (unrecognize d section and content) In the event this informatio n is protected by the [facility] Confidentiality of Alcohol and Drug Abuse Patient Records regulations: The Federal rules restrict any use of the information to criminally investigate or prosecute any alcohol or drug abuse patient.Sycamore Medical CenterIn the event this information is protected by the Federal Confidentiality of Alcohol and Drug Abuse Patient Records regulations: The Federal rules restrict any use of the information to criminally investigate or prosecute any alcohol or drug abuse patient.[facility] Care Team (unrecognized sect ion and content) Care Team Personnel Name: LORENZO MONTEMAYOR MD Position: P4 Physician - Primary Care Med Service: Active Provider Member Role: Primary Care Physician Address: Address: [facility] [place], [place] [id number] [place] [address] Care Team Related Persons Name: ZAINAB ORTIZ Address: [place] [address] [place], [place] [id number] FOR RECORDS PERTAINING TO PATIENTS WHO ARE OR HAVE BEEN ENROLLED IN A CHEMICAL DEPENDENCY/SUBSTANCEABUSE PROGRAM, SOME INFORMATION MAY BE OMITTED. This clinical summary was aggregated from multiple sources. Caution should be exercised in using it in the provision of clinical care. This summary normalizes information from multiple sources, and as a consequence, information in this document may materially change the coding, format and clinical context of patient data. In addition, data may be omitted in some cases. CLINICAL DECISIONS SHOULD BE BASED ON THE PRIMARY CLINICAL RECORDS. [facility] [email or web address] [facility]. provides no warranty or guarantee of the accuracy or completeness of information in this document.
== END | disposition home or self-care (01) ==
LOC: LABSPEC 15:41
PROVIDERS: Referring Provider Urology; Visit Provider Urology
DX: C67.9 Malignant neoplasm of bladder, unspecified (principal)
CPT/HCPCS: 88307